=== PATIENT | male | born 1985 | race Caucasian/White ===

== ENCOUNTER 2020-08-10 09:09 | Emergency (ER) | payer MEDICAID ==
[~2020-08-10] VITALS: Ht 185.4 cm; Wt 104.0 kg
[2020-08-10] MEDS ORDERED: LIDOCAINE HCL 1% 20ML VIAL (Pyxis) INJ INFIL ONE (09:45)
[2020-08-10] MEDS ORDERED: TETANUS, DIPHTHERIA, PERTUSSIS VAC/PF 0.5ML (>7YR OLD) IM ONE (10:00)
[2020-08-10 11:45] VITALS: BP 116/92
== END 2020-08-10 11:46 | disposition home or self-care (01) ==
LOC: ER 09:29
DX: S61.211A Laceration without foreign body of left index finger without damage to nail, initial encounter (principal); W26.8XXA Contact with other sharp object(s), not elsewhere classified, initial encounter; Y93.89 Activity, other specified; Y92.89 Other specified places as the place of occurrence of the external cause; Y99.8 Other external cause status; I10 Essential (primary) hypertension
CPT/HCPCS: 12001; 73130; 90471; 90715; 99283; J3490